=== PATIENT | female | born 1995 | race Caucasian/White ===

== ENCOUNTER 2017-01-31 12:57 | Emergency (ER) | payer MEDICAID ==
[~2017-01-31] VITALS: Ht 157.5 cm
[~2017-01-31 12:57] MED LIST: AMOXICILLIN500 MG PO; ANTIBIOTIC O500 U/GM TP; AUGMENTIN ES-6100 ML PO; BACTRIM DS 8001 TA1 PO; BLEPH-10 15 ML15 ML OP; CILOXAN 5 ML5 M1 OT; CILOXAN 5 ML5 ML OPH; CLARITIN-D 12 H1 TAB PO; CLARITIN10 MG PO; HYDROCODONE BIT1 T11 PO; KEFLEX500 MG PO; LOMOTIL 0.025 M1 TA1 PO; MOTRIN PO; MOTRIN400 MG PO; MOTRIN600 MG PO; NAPROSYN500 MG PO; NKHM; NO DAILY MEDS; OMEPRAZOLE20 MG PO; PHENERGAN25 M1 PO; TYLENOL325 M1; TYLENOL325 M1 PO; VITAMIN D50000 UNIT PO; ZANTAC 150150 MG PO; ZANTAC150 MG PO; ZITHROMAX Z PA250 MG PO; ZOFRAN ODT4 MG SL; ZOFRAN4 MG PO
[2017-01-31] MEDS ORDERED: NAPROSYN500 MG PO (13:20)
== END 2017-01-31 15:11 | disposition home or self-care (01) ==
LOC: ED 12:57
DX: S60.221A Contusion of right hand, initial encounter (principal); R03.0 Elevated blood-pressure reading, without diagnosis of hypertension; Z91.013 Allergy to seafood; W22.01XA Walked into wall, initial encounter; Y93.89 Activity, other specified; Y92.9 Unspecified place or not applicable; Y99.9 Unspecified external cause status

== ENCOUNTER 2017-03-17 11:02 | Emergency (ER) | payer MEDICAID ==
[~2017-03-17] VITALS: Ht 154.9 cm; Wt 66.2 kg
[2017-03-17] MEDS ORDERED: ZYRTEC10 MG PO (12:26)
[2017-03-17] MEDS ORDERED: ZOFRAN ODT4 MG SL (12:26)
== END 2017-03-17 12:42 | disposition home or self-care (01) ==
LOC: ED 11:02
DX: B34.9 Viral infection, unspecified (principal); Z90.89 Acquired absence of other organs; Z91.013 Allergy to seafood

== ENCOUNTER 2017-05-22 09:17 | Emergency (ER) | payer MEDICAID ==
[~2017-05-22] VITALS: Wt 66.7 kg
[~2017-05-22 09:17] MED LIST changes: +ZYRTEC10 MG PO
[2017-05-22 09:44] LABS: BASO # 0.1 10*3/uL (0.0-0.1); BASO % 0.8 % (0.0-1.0); EOS # 0.6 10*3/uL (0.0-0.4); EOS % 8.7 % (1.0-4.0); HEMOGLOBIN 12.4 g/dl (12.0-16.0); LYMPH # 2.8 10*3/uL (1.3-4.4); LYMPH % 37.3 % (27.0-41.0); MEAN CELL VOLUME 81.8 fl (81.0-99.0); MEAN CORPUSCULAR HGB CONC 31.8 g/dl (33.0-37.0); MEAN PLATELET VOLUME 9.8 fl (9.6-12.3); MONO # 0.5 10*3/uL (0.1-1.0); MONO % 6.1 % (3.0-9.0); NEUT # 3.5 10*3/uL (2.3-7.9); NEUT % 46.8 % (47.0-73.0); PLATELET COUNT AUTOMATED 317 10*3/uL (130-400); RED BLOOD COUNT 4.77 10*6/uL (4.10-5.10); RED CELL DISTRI WIDTH 13.1 % (0-14.5); WHITE BLOOD COUNT 7.4 10*3/uL (4.8-10.8)
[2017-05-22 09:59] LABS: ALBUMIN 3.7 gm/dl (3.1-4.5); ALKALINE PHOSPHATASE 94 U/L (45-117); BUN 4 mg/dl (7-24); CHLORIDE 108 mmol/L (98-107); CREATININE 0.88 mg/dL (0.55-1.02); POTASSIUM 3.9 mmol/L (3.5-5.1); SGOT/AST 10 IU/L (3-35); SGPT/ALT 20 U/L (12-78); SODIUM 140 mmol/L (136-145)
[2017-05-22] MEDS ORDERED: ZOFRAN4 MG PO (10:11)
== END 2017-05-22 10:29 | disposition home or self-care (01) ==
LOC: ED 09:17
PROVIDERS: Nurse Practitioner Family
DX: B34.9 Viral infection, unspecified (principal); Z91.013 Allergy to seafood; Z79.899 Other long term (current) drug therapy; Z90.89 Acquired absence of other organs

== ENCOUNTER 2017-06-30 19:22 | Emergency (ER) | payer MEDICAID ==
[~2017-06-30] VITALS: Ht 157.4 cm; Wt 61.7 kg
[2017-06-30] MEDS ORDERED: FLONASE ALLERG9.9 ML NAS (20:35)
== END 2017-06-30 20:43 | disposition home or self-care (01) ==
LOC: ED 19:22
DX: J06.9 Acute upper respiratory infection, unspecified (principal); Z91.013 Allergy to seafood; Z90.89 Acquired absence of other organs

== ENCOUNTER 2018-01-08 13:50 | Emergency (ER) | payer BC ==
[~2018-01-08] VITALS: Ht 154.9 cm; Wt 65.8 kg
[~2018-01-08 13:50] MED LIST changes: +FLONASE ALLERG9.9 ML NAS
== END 2018-01-08 17:06 | disposition home or self-care (01) ==
LOC: ED 13:50
DX: S90.01XA Contusion of right ankle, initial encounter (principal); S99.911A Unspecified injury of right ankle, initial encounter; Z90.89 Acquired absence of other organs; Z79.899 Other long term (current) drug therapy; Z91.013 Allergy to seafood; W01.198A Fall on same level from slipping, tripping and stumbling with subsequent striking against other object, initial encounter; Y93.89 Activity, other specified; Y92.89 Other specified places as the place of occurrence of the external cause; Y99.9 Unspecified external cause status